=== PATIENT | female | born 2000 | race Caucasian/White ===

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

== ENCOUNTER → 2021-08-31 | Outpatient (REF) | payer OTHER | LOC: M LAB REF 21:15 | PROVIDERS: ATTEND Physician Assistant | DX: R05.9 Cough, unspecified (principal); R50.9 Fever, unspecified ==

== ENCOUNTER → 2021-10-05 | Outpatient (REF) | payer OTHER ==
[2021-10-05 23:03] LABS: RSV AMPLIFICATION NEGATIVE (NEGATIVE)
== END ==
LOC: M LAB REF 21:55
PROVIDERS: ATTEND Physician Assistant
DX: R53.83 Other fatigue (principal); R50.81 Fever presenting with conditions classified elsewhere

== ENCOUNTER → 2022-01-10 | Outpatient (REF) | payer OTHER | LOC: M PLALAB 08:37 | PROVIDERS: ATTEND Advanced Practice Midwife | DX: Z12.4 Encounter for screening for malignant neoplasm of cervix (principal) ==

== ENCOUNTER → 2022-03-30 | Outpatient (REF) | payer OTHER ==
[2022-03-30 23:29] LABS: URINE PREG TEST NEGATIVE (NEGATIVE)
[2022-03-31 09:12] LABS: APPEARANCE, URINE CLEAR (CLEAR); COLOR, URINE YELLOW (YELLOW); PROTEIN, URINE AUTO 2+ mg/dL (NEGATIVE); SPECIFIC GRAVITY URINE AUTO 1.033 (1.002-1.035)
[2022-03-31 09:13] LABS: BACTERIA, URINE AUTO NEGATIVE (NEGATIVE); BILIRUBIN, URINE AUTO NEGATIVE (NEGATIVE); BLOOD, URINE BLOOD NEGATIVE (NEGATIVE); GLUCOSE, URINE (UA) AUTO NEGATIVE (NEGATIVE); KETONE, URINE AUTO TRACE mg/dL (NEGATIVE); LEUKOCYTE ESTERASE, URINE AUTO TRACE (NEGATIVE); NITRITE, URINE AUTO NEGATIVE (NEGATIVE); RBC, URINE AUTO 2 /HPF (0-3); WBC, URINE AUTO 3 /HPF (0-3)
[2022-03-31 09:14] LABS: SQUAMOUS EPITHELIAL CELL UR AU 15 /HPF (0-6)
[2022-03-31 09:15] LABS: MUCUS, URINE SMALL (NEGATIVE)
== END ==
LOC: M LAB REF 22:39
PROVIDERS: ATTEND Physician Assistant
DX: N39.0 Urinary tract infection, site not specified (principal)

== ENCOUNTER → 2022-03-31 | Outpatient (CLI) | payer OTHER | LOC: M RAD 13:33 | PROVIDERS: ATTEND Physician Assistant | DX: R10.2 Pelvic and perineal pain (principal); N93.9 Abnormal uterine and vaginal bleeding, unspecified ==

== ENCOUNTER → 2022-07-11 | Outpatient (CLI) | payer OTHER ==
[~2022-07-11] MED LIST changes: +ALBU6.7H6 INH; +ETON68IM SC; -NEXP1IMP SC; -PROV108A INH
== END ==
LOC: M WHC 13:30
PROVIDERS: ATTEND Advanced Practice Midwife
DX: R10.2 Pelvic and perineal pain (principal)

== ENCOUNTER → 2024-03-24 | Outpatient (REF) | payer BC ==
[2024-03-24 12:12] LABS: URINE PREG TEST NEGATIVE (NEGATIVE)
[2024-03-24 12:17] LABS: APPEARANCE, URINE CLEAR (CLEAR); BACTERIA, URINE AUTO NEGATIVE (NEGATIVE); BILIRUBIN, URINE AUTO NEGATIVE (NEGATIVE); BLOOD, URINE BLOOD NEGATIVE (NEGATIVE); COLOR, URINE YELLOW (YELLOW); GLUCOSE, URINE (UA) AUTO NEGATIVE (NEGATIVE); KETONE, URINE AUTO NEGATIVE (NEGATIVE); LEUKOCYTE ESTERASE, URINE AUTO NEGATIVE (NEGATIVE); MUCUS, URINE SMALL (NEGATIVE); NITRITE, URINE AUTO NEGATIVE (NEGATIVE); PROTEIN, URINE AUTO NEGATIVE (NEGATIVE); RBC, URINE AUTO 1 /HPF (0-3); SPECIFIC GRAVITY URINE AUTO 1.019 (1.002-1.035); SQUAMOUS EPITHELIAL CELL UR AU 2 /HPF (0-6); UROBILINOGEN, URINE AUTO 0.2 mg/dL (0.0-2.0); WBC, URINE AUTO 0 /HPF (0-3)
== END ==
LOC: M LAB REF 11:54
PROVIDERS: ATTEND Physician Assistant Medical
DX: N39.0 Urinary tract infection, site not specified (principal)

== ENCOUNTER 2024-04-10 18:31 | Emergency (ER) | payer BC ==
[~2024-04-10] VITALS: Ht 170.2 cm; Wt 120.9 kg
[~2024-04-10 18:31] MED LIST changes: -NAPR-837 PO
[2024-04-10 20:31] LABS: BASO # 0.1 10^3/uL (0.0-0.2); BASO % 0.5 % (0.0-1.0); EOS # 0.3 10^3/uL (0.0-0.5); EOS % 1.9 % (0.0-3.0); HEMATOCRIT 40.7 % (36.0-47.0); HEMOGLOBIN 13.2 g/dl (12.0-15.5); LYMPH # 4.2 10^3/uL (1.5-5.0); MEAN CORPUSCULAR HEMOGLOBIN 26.1 pg (27.0-33.0); MEAN CORPUSCULAR HGB CONC 32.4 g/dl (32.0-36.5); MEAN CORPUSCULAR VOLUME 80.6 fl (80.0-96.0); MONO # 0.9 10^3/uL (0.0-0.8); MONO % 6.1 % (2.0-8.0); NEUTROPHILS % 61.9 % (36.0-66.0); PLATELET COUNT, AUTOMATED 367 10^3/uL (150-450); RED BLOOD COUNT 5.05 10^6/uL (4.00-5.40); WHITE BLOOD COUNT 14.5 10^3/uL (4.0-10.0)
[2024-04-10] MEDS: MAGNESIUM CITRATE 300ML BTL PO ONE (20:38)
[2024-04-10 20:51] LABS: ALBUMIN 4.1 G/DL (3.2-5.2); BILIRUBIN,DIRECT 0.2 MG/DL (<0.4); BILIRUBIN,TOTAL 0.5 MG/DL (0.3-1.2); TOTAL PROTEIN 7.2 G/DL (5.7-8.2)
[2024-04-11] MEDS ORDERED: ISOVUE-370 76% 100ML VIAL As Ordered ONE (01:45)
[2024-04-11] MEDS ORDERED: NAPR-837 PO (05:36)
[2024-04-11 05:40] VITALS: BP 128/57; TEMP 97.4; O2SAT 97
== END 2024-04-11 05:48 | disposition home or self-care (01) ==
LOC: M ED 18:31
DX: K59.00 Constipation, unspecified (principal); I88.0 Nonspecific mesenteric lymphadenitis; J45.909 Unspecified asthma, uncomplicated; Z79.52 Long term (current) use of systemic steroids; Z79.899 Other long term (current) drug therapy; Z79.1 Long term (current) use of non-steroidal anti-inflammatories (NSAID)
CPT/HCPCS: 36415; 74177; 80047; 80076; 83690; 85025; 99284; Q9967

== ENCOUNTER → 2024-04-10 | Outpatient (CLI) | payer BC ==
[~2024-04-10] MED LIST changes: +NAPR-837 PO
== END ==
LOC: M RAD 11:24
PROVIDERS: ATTEND Physician Assistant
DX: R10.9 Unspecified abdominal pain (principal)

== ENCOUNTER → 2024-08-11 | Outpatient (REF) | payer BC ==
[~2024-08-11] MED LIST changes: +NAPR-837 PO
== END ==
LOC: M SFHCWAGY 17:37
PROVIDERS: ATTEND Advanced Practice Midwife
DX: Z12.4 Encounter for screening for malignant neoplasm of cervix (principal)

== ENCOUNTER → 2024-09-05 | Outpatient (REF) | payer BC ==
[2024-09-05 17:31] LABS: BASO # 0.1 10^3/uL (0.0-0.2); BASO % 0.6 % (0.0-1.0); EOS # 0.3 10^3/uL (0.0-0.5); EOS % 2.2 % (0.0-3.0); HEMATOCRIT 44.1 % (36.0-47.0); HEMOGLOBIN 13.9 g/dl (12.0-15.5); LYMPH # 3.3 10^3/uL (1.5-5.0); LYMPH % 25.5 % (24.0-44.0); MEAN CORPUSCULAR HEMOGLOBIN 25.9 pg (27.0-33.0); MEAN CORPUSCULAR HGB CONC 31.5 g/dl (32.0-36.5); MEAN CORPUSCULAR VOLUME 82.3 fl (80.0-96.0); MONO # 0.7 10^3/uL (0.0-0.8); MONO % 5.5 % (2.0-8.0); NEUTROPHILS # 8.4 10^3/uL (1.5-8.5); NEUTROPHILS % 65.3 % (36.0-66.0); PLATELET COUNT, AUTOMATED 383 10^3/uL (150-450); RED BLOOD COUNT 5.36 10^6/uL (4.00-5.40); WHITE BLOOD COUNT 12.8 10^3/uL (4.0-10.0)
[2024-09-05 17:36] LABS: ALBUMIN 4.1 G/DL (3.2-5.2); ALKALINE PHOSPHATASE 58 U/L (35-104); ALT/SGPT 21 U/L (7.0-40); AST/SGOT 13 U/L (<34); BILIRUBIN,TOTAL 0.7 MG/DL (0.3-1.2); BLOOD UREA NITROGEN 12 MG/DL (9-23); CALCIUM LEVEL 9.6 MG/DL (8.5-10.1); CARBON DIOXIDE LEVEL 26 MMOL/L (20-31); CHLORIDE LEVEL 106 MMOL/L (98-107); CHOLESTEROL LEVEL 209 MG/DL (<200); CHOLESTEROL RISK RATIO 4.59 (<5); CREATININE FOR GFR 0.64 MG/DL (0.55-1.30); GLOMERULAR FILTRATION RATE > 60.0 (>60); GLUCOSE, FASTING 90 MG/DL (60-100); HDL CHOLESTEROL 45.5 MG/DL (>40); LDL CHOLESTEROL 141.3 MG/DL (<100); NON-HDL-C 163.5 MG/DL; POTASSIUM SERUM 4.4 MMOL/L (3.5-5.1); SODIUM LEVEL 139 MMOL/L (136-145); TOTAL PROTEIN 7.7 G/DL (5.7-8.2); TRIGLYCERIDES LEVEL 111 MG/DL (<150)
[2024-09-05 17:38] LABS: THYROID STIMULATING HORMONE 2.478 uIU/ML (0.55-4.78); TOTAL 25(OH) VITAMIN D 19.4 NG/ML (20.0-100.0)
[2024-09-05 18:21] LABS: HEMOGLOBIN A1c 5.3 % (4.0-6.0)
== END ==
LOC: M SFHCADAM 11:16
PROVIDERS: ATTEND Physician Assistant Medical
DX: E66.01 Morbid (severe) obesity due to excess calories (principal); Z68.41 Body mass index [BMI] 40.0-44.9, adult; K59.09 Other constipation; Z84.0 Family history of diseases of the skin and subcutaneous tissue; E16.1 Other hypoglycemia; K76.0 Fatty (change of) liver, not elsewhere classified

== ENCOUNTER → 2024-09-09 | Outpatient (CLI) | payer BC | LOC: M LAB 16:17 | PROVIDERS: ATTEND Physician Assistant Medical | DX: Z84.0 Family history of diseases of the skin and subcutaneous tissue (principal) ==

== ENCOUNTER → 2024-09-25 | Outpatient (REF) | payer BC ==
[2024-09-25 13:58] LABS: C REACTIVE PROTEIN QUANTITATIV 0.75 MG/DL (<1.0)
[2024-09-25 13:59] LABS: COMPLEMENT C3 197.1 MG/DL (82.0-160.0); COMPLEMENT C4 39.2 MG/DL (12-36)
== END ==
LOC: M SFHCADAM 07:40
PROVIDERS: ATTEND Physician Assistant Medical
DX: R76.8 Other specified abnormal immunological findings in serum (principal)

== ENCOUNTER → 2024-10-28 | Outpatient (CLI) | payer BC ==
[~2024-10-28] MED LIST changes: +ISOVUE-370 76% 100ML VIAL As Ordered ONE
[2024-10-28 15:04] LABS: URINE PREG TEST NEGATIVE (NEGATIVE)
[2024-10-28 15:05] LABS: APPEARANCE, URINE HAZY (CLEAR); BACTERIA, URINE AUTO NEGATIVE (NEGATIVE); BILIRUBIN, URINE AUTO NEGATIVE (NEGATIVE); BLOOD, URINE BLOOD NEGATIVE (NEGATIVE); COLOR, URINE YELLOW (YELLOW); GLUCOSE, URINE (UA) AUTO NEGATIVE (NEGATIVE); KETONE, URINE AUTO NEGATIVE (NEGATIVE); LEUKOCYTE ESTERASE, URINE AUTO NEGATIVE (NEGATIVE); MUCUS, URINE SMALL (NEGATIVE); NITRITE, URINE AUTO NEGATIVE (NEGATIVE); PROTEIN, URINE AUTO NEGATIVE (NEGATIVE); RBC, URINE AUTO 0 /HPF (0-3); SPECIFIC GRAVITY URINE AUTO 1.021 (1.002-1.035); SQUAMOUS EPITHELIAL CELL UR AU 2 /HPF (0-6); UROBILINOGEN, URINE AUTO 0.2 mg/dL (0.0-2.0); WBC, URINE AUTO 0 /HPF (0-3)
[2024-10-28 15:12] LABS: BASO # 0.1 10^3/uL (0.0-0.2); BASO % 0.5 % (0.0-1.0); EOS # 0.2 10^3/uL (0.0-0.5); EOS % 1.3 % (0.0-3.0); HEMATOCRIT 42.9 % (36.0-47.0); HEMOGLOBIN 13.7 g/dl (12.0-15.5); LYMPH # 3.2 10^3/uL (1.5-5.0); LYMPH % 22.5 % (24.0-44.0); MEAN CORPUSCULAR HEMOGLOBIN 25.8 pg (27.0-33.0); MEAN CORPUSCULAR HGB CONC 31.9 g/dl (32.0-36.5); MEAN CORPUSCULAR VOLUME 80.9 fl (80.0-96.0); MONO # 0.7 10^3/uL (0.0-0.8); NEUTROPHILS # 9.9 10^3/uL (1.5-8.5); NEUTROPHILS % 70.2 % (36.0-66.0); PLATELET COUNT, AUTOMATED 352 10^3/uL (150-450); WHITE BLOOD COUNT 14.1 10^3/uL (4.0-10.0)
[2024-10-28 15:41] LABS: ALBUMIN 3.9 G/DL (3.2-5.2); ALKALINE PHOSPHATASE 61 U/L (35-104); ALT/SGPT 17 U/L (7.0-40); AST/SGOT 12 U/L (<34); BILIRUBIN,TOTAL 0.6 MG/DL (0.3-1.2); BLOOD UREA NITROGEN 9 MG/DL (9-23); CALCIUM LEVEL 9.6 MG/DL (8.5-10.1); CARBON DIOXIDE LEVEL 27 MMOL/L (20-31); CHLORIDE LEVEL 104 MMOL/L (98-107); CREATININE FOR GFR 0.59 MG/DL (0.55-1.30); GLOMERULAR FILTRATION RATE > 60.0 (>60); GLUCOSE, FASTING 82 MG/DL (60-100); POTASSIUM SERUM 4.2 MMOL/L (3.5-5.1); SODIUM LEVEL 140 MMOL/L (136-145); TOTAL PROTEIN 7.4 G/DL (5.7-8.2)
== END ==
LOC: M RAD 14:03
PROVIDERS: ATTEND Physician Assistant
DX: R10.84 Generalized abdominal pain (principal); K52.9 Noninfective gastroenteritis and colitis, unspecified; R39.11 Hesitancy of micturition

== ENCOUNTER → 2024-10-28 | Outpatient (REF) | payer BC ==
[~2024-10-28] MED LIST changes: -ISOVUE-370 76% 100ML VIAL As Ordered ONE
[2024-10-28 18:10] LABS: APPEARANCE, URINE CLEAR (CLEAR); BACTERIA, URINE AUTO NEGATIVE (NEGATIVE); BILIRUBIN, URINE AUTO NEGATIVE (NEGATIVE); BLOOD, URINE BLOOD NEGATIVE (NEGATIVE); COLOR, URINE YELLOW (YELLOW); GLUCOSE, URINE (UA) AUTO NEGATIVE (NEGATIVE); KETONE, URINE AUTO NEGATIVE (NEGATIVE); LEUKOCYTE ESTERASE, URINE AUTO NEGATIVE (NEGATIVE); NITRITE, URINE AUTO NEGATIVE (NEGATIVE); PROTEIN, URINE AUTO NEGATIVE (NEGATIVE); RBC, URINE AUTO 0 /HPF (0-3); SQUAMOUS EPITHELIAL CELL UR AU 1 /HPF (0-6); UROBILINOGEN, URINE AUTO 0.2 mg/dL (0.0-2.0); WBC, URINE AUTO 0 /HPF (0-3)
== END ==
LOC: M SFHCADAM 17:15
PROVIDERS: ATTEND Physician Assistant
DX: R10.84 Generalized abdominal pain (principal); K52.9 Noninfective gastroenteritis and colitis, unspecified; R39.11 Hesitancy of micturition

== ENCOUNTER → 2024-12-19 | Outpatient (REF) | payer BC ==
[2024-12-19 19:30] LABS: Trichomonas vaginalis (AMP) NOT DETECTED (NEGATIVE)
[2024-12-19 19:54] LABS: GC DNA AMPLIFICATION NEGATIVE (NEGATIVE)
== END ==
LOC: M SFHCWAGY 17:13
PROVIDERS: ATTEND Advanced Practice Midwife
DX: Z34.81 Encounter for supervision of other normal pregnancy, first trimester (principal)

== ENCOUNTER → 2024-12-29 | Outpatient (CLI) | payer BC ==
[2024-12-29 19:23] LABS: HEMATOCRIT 39.8 % (36.0-47.0); HEMOGLOBIN 12.9 g/dl (12.0-15.5); MEAN CORPUSCULAR HEMOGLOBIN 26.5 pg (27.0-33.0); MEAN CORPUSCULAR HGB CONC 32.4 g/dl (32.0-36.5); MEAN CORPUSCULAR VOLUME 81.9 fl (80.0-96.0); PLATELET COUNT, AUTOMATED 369 10^3/uL (150-450); RED BLOOD COUNT 4.86 10^6/uL (4.00-5.40); WHITE BLOOD COUNT 14.9 10^3/uL (4.0-10.0)
[2024-12-29 20:14] LABS: HIV 1&2 SCREEN NEGATIVE (NEGATIVE)
[2024-12-29 20:23] LABS: HEPATITIS C VIRUS ABY INDEX 0.04 INDEX (<0.8)
== END ==
LOC: M PLALAB 16:00
PROVIDERS: ATTEND Advanced Practice Midwife
DX: Z34.81 Encounter for supervision of other normal pregnancy, first trimester (principal)

== ENCOUNTER → 2025-02-02 | Outpatient (REF) | payer BC ==
[2025-02-02 18:25] LABS: APPEARANCE, URINE CLEAR (CLEAR); BACTERIA, URINE AUTO NEGATIVE (NEGATIVE); BILIRUBIN, URINE AUTO NEGATIVE (NEGATIVE); BLOOD, URINE BLOOD NEGATIVE (NEGATIVE); COLOR, URINE YELLOW (YELLOW); GLUCOSE, URINE (UA) AUTO NEGATIVE (NEGATIVE); KETONE, URINE AUTO NEGATIVE (NEGATIVE); LEUKOCYTE ESTERASE, URINE AUTO NEGATIVE (NEGATIVE); MUCUS, URINE SMALL (NEGATIVE); NITRITE, URINE AUTO NEGATIVE (NEGATIVE); PROTEIN, URINE AUTO NEGATIVE (NEGATIVE); RBC, URINE AUTO 1 /HPF (0-3); SQUAMOUS EPITHELIAL CELL UR AU 1 /HPF (0-6); WBC, URINE AUTO 1 /HPF (0-3)
== END ==
LOC: M LAB REF 17:34
PROVIDERS: ATTEND Physician Assistant Medical
DX: N39.0 Urinary tract infection, site not specified (principal)

== ENCOUNTER → 2025-02-06 | Outpatient (REF) | payer BC ==
[2025-02-06 17:35] LABS: APPEARANCE, URINE CLEAR (CLEAR); BACTERIA, URINE AUTO NEGATIVE (NEGATIVE); BILIRUBIN, URINE AUTO NEGATIVE (NEGATIVE); BLOOD, URINE BLOOD NEGATIVE (NEGATIVE); COLOR, URINE STRAW (YELLOW); GLUCOSE, URINE (UA) AUTO NEGATIVE (NEGATIVE); KETONE, URINE AUTO NEGATIVE (NEGATIVE); LEUKOCYTE ESTERASE, URINE AUTO NEGATIVE (NEGATIVE); NITRITE, URINE AUTO NEGATIVE (NEGATIVE); PROTEIN, URINE AUTO NEGATIVE (NEGATIVE); RBC, URINE AUTO 0 /HPF (0-3); SPECIFIC GRAVITY URINE AUTO 1.004 (1.002-1.035); SQUAMOUS EPITHELIAL CELL UR AU 0 /HPF (0-6); UROBILINOGEN, URINE AUTO 0.2 mg/dL (0.0-2.0); WBC, URINE AUTO 0 /HPF (0-3)
== END ==
LOC: M SFHCWAGY 16:49
PROVIDERS: ATTEND Advanced Practice Midwife
DX: R30.0 Dysuria (principal)

== ENCOUNTER → 2025-02-25 | Outpatient (CLI) | payer BC | LOC: M LAB 06:46 | PROVIDERS: ATTEND Internal Medicine | DX: K58.9 Irritable bowel syndrome, unspecified (principal) ==

== ENCOUNTER → 2025-03-05 | Outpatient (CLI) | payer BC | LOC: M WHC 14:49 | PROVIDERS: ATTEND Obstetrics & Gynecology | DX: Z34.82 Encounter for supervision of other normal pregnancy, second trimester (principal) ==

== ENCOUNTER → 2025-06-02 | Outpatient (CLI) | payer BC ==
[~2025-06-02] MED LIST changes: +PRENTAB9 PO
[2025-06-02 17:15] LABS: PLATELET COUNT, AUTOMATED 310 10^3/uL (150-450)
[2025-06-02 17:30] LABS: TOTAL PROTEIN,RANDOM URINE 21.5 MG/DL (0.0-14.0)
[2025-06-02 17:33] LABS: LDH LACTATE DEHYDROGENASE 181 U/L (120-246)
[2025-06-02 17:35] LABS: ALT/SGPT 14 U/L (7.0-40); AST/SGOT 14 U/L (<34); CREATININE FOR GFR 0.66 MG/DL (0.55-1.30); GLOMERULAR FILTRATION RATE > 90.0 (>60)
== END ==
LOC: M PLALAB 15:51
PROVIDERS: ATTEND Nurse Practitioner Family
DX: R03.0 Elevated blood-pressure reading, without diagnosis of hypertension (principal)

== ENCOUNTER 2025-06-04 08:21 | Outpatient (CLI) | payer BC ==
[~2025-06-04] VITALS: Ht 170.2 cm; Wt 139.9 kg
[~2025-06-04 08:21] MED LIST changes: -PRENTAB9 PO
[2025-06-04] MEDS ORDERED: PRENTAB9 PO (08:57)
[2025-06-04 09:09] VITALS: BP 115/56
[2025-06-04 09:24] VITALS: BP 109/54
== END 2025-06-04 12:12 | disposition home or self-care (01) ==
LOC: M LDO 08:21
PROVIDERS: ATTEND Obstetrics & Gynecology
DX: O36.8130 Decreased fetal movements, third trimester, not applicable or unspecified (principal); Z3A.33 33 weeks gestation of pregnancy; R76.8 Other specified abnormal immunological findings in serum; K59.09 Other constipation; Z82.69 Family history of other diseases of the musculoskeletal system and connective tissue; Z82.61 Family history of arthritis
CPT/HCPCS: 59025; 76815; 76819; 76820; G0463

== ENCOUNTER 2025-06-05 16:59 | Outpatient (CLI) | payer BC ==
[~2025-06-05] VITALS: Ht 170.2 cm; Wt 139.9 kg
[~2025-06-05 16:59] MED LIST changes: +PRENTAB9 PO
[2025-06-05 17:12] VITALS: BP 135/76
[2025-06-05 17:32] VITALS: BP 136/67
[2025-06-05 17:44] VITALS: BP 125/61
[2025-06-05 17:58] VITALS: BP 130/63
[2025-06-05 18:13] VITALS: BP 132/63
[2025-06-05 18:28] VITALS: BP 131/67
[2025-06-05] MEDS ORDERED: HOME MED LIST COMPLETE! XX SCH (19:00)
== END 2025-06-05 18:54 | disposition home or self-care (01) ==
LOC: M LDO 16:59
PROVIDERS: ATTEND Advanced Practice Midwife
DX: O26.893 Other specified pregnancy related conditions, third trimester (principal); R03.0 Elevated blood-pressure reading, without diagnosis of hypertension; Z3A.33 33 weeks gestation of pregnancy
CPT/HCPCS: 59025; G0463

== ENCOUNTER 2025-06-17 16:02 | Outpatient (CLI) | payer BC ==
[~2025-06-17] VITALS: Ht 170.2 cm; Wt 142.2 kg
[2025-06-17 16:24] VITALS: BP 135/76
[2025-06-17 16:25] VITALS: BP 137/77
[2025-06-17 17:04] LABS: PLATELET COUNT, AUTOMATED 280 10^3/uL (150-450)
[2025-06-17 17:36] LABS: LDH LACTATE DEHYDROGENASE 170 U/L (120-246)
[2025-06-17 17:37] LABS: ALT/SGPT 12 U/L (7.0-40); AST/SGOT 12 U/L (<34); CREATININE FOR GFR 0.52 MG/DL (0.55-1.30); GLOMERULAR FILTRATION RATE > 90.0 (>60)
[2025-06-17 18:19] LABS: TOTAL PROTEIN,RANDOM URINE < 6.0 MG/DL (0.0-14.0)
[2025-06-17 21:02] VITALS: BP 141/71
== END 2025-06-17 21:03 | disposition home or self-care (01) ==
LOC: M LDO 16:02
PROVIDERS: ATTEND Advanced Practice Midwife
DX: O99.891 Other specified diseases and conditions complicating pregnancy (principal); O99.513 Diseases of the respiratory system complicating pregnancy, third trimester; R03.0 Elevated blood-pressure reading, without diagnosis of hypertension; J45.909 Unspecified asthma, uncomplicated; Z88.1 Allergy status to other antibiotic agents; Z3A.35 35 weeks gestation of pregnancy
CPT/HCPCS: 36415; 59025; 76815; 76816; 76819; 82247; 82570; 83615; 84156; 84450; 84460; 84550; 85027; 87081; G0463

== ENCOUNTER → 2025-06-17 | Outpatient (REF) | payer BC | LOC: M SFHCWAGY 17:13 | PROVIDERS: ATTEND Obstetrics & Gynecology | DX: Z34.80 Encounter for supervision of other normal pregnancy, unspecified trimester (principal) ==

== ENCOUNTER 2025-06-28 07:12 | Inpatient (IN) | payer BC ==
[2025-06-28] VITALS (12 sets, daily range): BP systolic 110–131; BP diastolic 58–72; O2SAT 96
[~2025-06-28] VITALS: Ht 170.2 cm; Wt 142.0 kg
[2025-06-28] MEDS ORDERED: HOME MED LIST COMPLETE! XX SCH (07:25)
[2025-06-28] MEDS ORDERED: TRANEXAMIC ACID INJection 1,000 MG in NS 100 ML IV PRN (11:00)
[2025-06-28] MEDS ORDERED: OXYTOCIN INJ 10UNITS/ML 1ML VIAL IM PRN (11:00)
[2025-06-28] MEDS ORDERED: LIDOCAINE 1% MDV 20 ML VIAL INFIL PRN (11:00)
[2025-06-28] MEDS ORDERED: OXYTOCIN DRIP 30 UNITS in IV 1 EA IV PRN (11:00)
[2025-06-28] MEDS ORDERED: CARBOPROST TROMETHAMINE 250 MCG/ML AMP IM PRN (11:00)
[2025-06-28] MEDS: miSOPROStol 50 MCG 1/2 TABLET PO SCH (11:08)
[2025-06-28 11:31] LABS: PLATELET COUNT, AUTOMATED 291 10^3/uL (150-450)
[2025-06-28 11:48] LABS: ALT/SGPT 11 U/L (7.0-40); AST/SGOT 12 U/L (<34); CREATININE FOR GFR 0.49 MG/DL (0.55-1.30); GLOMERULAR FILTRATION RATE > 90.0 (>60); LDH LACTATE DEHYDROGENASE 161 U/L (120-246)
[2025-06-28 11:52] LABS: TOTAL PROTEIN,RANDOM URINE 44.4 MG/DL (0.0-14.0)
[2025-06-28 12:21] LABS: HIV 1&2 SCREEN NEGATIVE (NEGATIVE)
[2025-06-29] VITALS (26 sets, daily range): BP systolic 114–142; BP diastolic 59–81; O2SAT 97
[2025-06-29] MEDS: LR 1,000 ML IV SCH (09:32)
[2025-06-29] MEDS: OXYTOCIN DRIP 30 UNITS in IV 1 EA IV SCH (09:40)
[2025-06-29 11:44] LABS: HEPATITIS C VIRUS ABY INDEX < 0.02 INDEX (<0.8)
[2025-06-30] VITALS (20 sets, daily range): BP systolic 119–152; BP diastolic 61–90; TEMP 97.8; O2SAT 96–100
[2025-06-30] MEDS: ONDANSETRON 4MG 2ML VIAL IV PRN (11:00)
[2025-06-30] MEDS ORDERED: PHENYLephrine 500MCG 5ML (100MCG/ML) SYRINGE As Ordered ONE (14:11)
[2025-06-30] MEDS ORDERED: MORPHINE PRES-FREE INJ 10 MG/10 ML VIAL As Ordered ONE (14:12)
[2025-06-30] MEDS ORDERED: OXYTOCIN 30UNITS IN 0.9% NaCl 500ML IV BAG As Ordered ONE (14:15)
[2025-06-30] MEDS: AZITHROMYCIN INJ 500 MG, VIAL MATE ADAPTER 1 EACH in NS 250 ML IV ONE (14:20)
[2025-06-30] MEDS: BICITRA 30 ML SOLN UDC PO ONE (14:26)
[2025-06-30] MEDS: ceFAZolin SODIUM 3 GM in DEXTROSE 5% (D5W) MINI-BAG PLU 100 ML IV ONE (15:00)
[2025-06-30] MEDS ORDERED: KETOROLAC 30 MG/ML 1 ML VIAL As Ordered ONE (15:02)
[2025-06-30] MEDS ORDERED: ONDANSETRON 4MG 2ML VIAL As Ordered ONE (15:02)
[2025-06-30 15:17] LABS: CORD GAS ABE V -6.2; CORD GAS HCO3 V 21.6 MMOL/L; CORD GAS O2 SAT V 40.7 %; CORD GAS PCO2 V 51.7 mmHg; CORD GAS PH V 7.239 UNITS; CORD GAS PO2 V 17.9 mmHg; CORD GAS SBC V 18.2 MMOL/L; CORD GAS TCO2 V 23.2 MMOL/L
[2025-06-30 15:19] LABS: CORD GAS ABE A -7.7; CORD GAS HCO3 A 21.3 MMOL/L; CORD GAS O2 SAT A 15.7 %; CORD GAS PCO2 A 58.6 mmHg; CORD GAS PH A 7.179 UNITS; CORD GAS PO2 A 11.6 mmHg; CORD GAS SBC A 16.7 MMOL/L; CORD GAS TCO2 A 23.1 MMOL/L
[2025-06-30] MEDS ORDERED: SIMETHICONE 80MG CHEW TAB PO PRN (15:25)
[2025-06-30] MEDS ORDERED: ONDANSETRON 4MG 2ML VIAL IV PRN (15:25)
[2025-06-30] MEDS ORDERED: diphenhydrAMINE 50 MG/ML VIAL IV PRN (16:10)
[2025-06-30] MEDS ORDERED: NALOXONE INJ 0.4 MG/1 ML VIAL IV PRN ×2 (16:10)
[2025-06-30] MEDS ORDERED: **NOTE PATIENT COMMENT** MISC XX SCH (16:10)
[2025-06-30] MEDS: LR 1,000 ML IV SCH (16:38)
[2025-06-30] MEDS: PRENATAL VITAMINS CHEWABLE TABLET PO SCH (17:26)
[2025-06-30] MEDS: SLF 3 ML SYR IV SCH (18:24)
[2025-06-30] MEDS: KETOROLAC 30 MG/ML 1 ML VIAL IV SCH (22:38)
[2025-07-01 02:00] VITALS: BP 126/68; O2SAT 100
[2025-07-01] MEDS ORDERED: OXYC1TAB23 PO (05:16)
[2025-07-01] MEDS ORDERED: COLA100C5 PO (05:16)
[2025-07-01] MEDS ORDERED: IBUP80TA PO (05:16)
[2025-07-01 06:00] VITALS: BP 111/57; O2SAT 98
[2025-07-01 07:14] LABS: PLATELET COUNT, AUTOMATED 245 10^3/uL (150-450)
[2025-07-01 10:00] VITALS: BP 116/55; O2SAT 97
[2025-07-01] MEDS: PERCOCET 5MG/325MG TAB PO PRN (13:21)
[2025-07-01 14:00] VITALS: BP 106/53; O2SAT 98
[2025-07-01 18:00] VITALS: BP 126/68; O2SAT 97
[2025-07-01] MEDS: IBUPROFEN 800 MG TAB PO SCH (18:15)
[2025-07-01] MEDS: DOCUSATE SODIUM 100 MG CAPSULE PO PRN (18:15)
[2025-07-01] MEDS: RHOGAM 300MCG (1500IU) INJ IM SCH (22:08)
[2025-07-01 23:00] VITALS: BP 106/56; O2SAT 97
[2025-07-02 02:45] VITALS: BP 125/60; O2SAT 98
[2025-07-02] MEDS: PERCOCET 5MG/325MG TAB PO PRN (04:24)
[2025-07-02 06:12] VITALS: BP 110/58; O2SAT 96
[2025-07-02] MEDS: MEASLES,MUMPS,RUBELLA VACCINE INJ (MMR-II) SC.IMMUN ONE (09:00)
[2025-07-02 18:00] VITALS: BP 132/62; O2SAT 86
[2025-07-03 06:00] VITALS: BP 118/66; O2SAT 99
== END 2025-07-03 13:15 | disposition home or self-care (01) | DRG 540 ==
LOC: M LDI 07:12 → M OBS 06-30 17:02
PROVIDERS: ADMIT Advanced Practice Midwife; ATTEND Specialist
PROC: 3E0P7GC Introduction of Other Therapeutic Substance into Female Reproductive, Via Natural or Artificial Opening (ICD-10-PCS; 2025-06-28)
PROC: 10907ZC Drainage of Amniotic Fluid, Therapeutic from Products of Conception, Via Natural or Artificial Opening (ICD-10-PCS; 2025-06-30)
PROC: 10D00Z1 Extraction of Products of Conception, Low, Open Approach (ICD-10-PCS; principal; 2025-06-30 14:28)
DX: O13.4 Gestational [pregnancy-induced] hypertension without significant proteinuria, complicating childbirth (principal); O62.0 Primary inadequate contractions; Z3A.37 37 weeks gestation of pregnancy; Z37.0 Single live birth